=== PATIENT | male | born 1970 | race Caucasian/White ===

== ENCOUNTER 2016-11-29 11:13 | Emergency (ER) | payer SELFPAY ==
--- NOTE | 2016-11-29 20:56 | RAD ---
LUMBAR SPINE THREE VIEWS: Date: 11-29-16 FINDINGS: No fracture, dislocation, or disc space narrowing was seen. Some prominent osteophytes are seen ante riorly near the thoracolumbar junction and especially at the L3-4 level. The SI joints are symmetric al. IMPRESSION: Mild to moderate degenerative changes for age. No acute findings. POS: HOME
== END 2016-11-29 12:37 | disposition home or self-care (01) ==
LOC: BURERS 11:13
DX: M54.5 Low back pain (principal); M54.6 Pain in thoracic spine
CPT/HCPCS: 72100

== ENCOUNTER 2019-04-06 07:46 | Outpatient (CLI) | payer BC ==
[2019-04-06] MEDS ORDERED: Iopamidol 370 76% 100 ML VIAL ONE (10:26)
--- NOTE | 2019-04-07 07:35 | CT ---
CT abdomen and pelvis with IV and oral contrast HISTORY: Abdominal pain. FINDINGS: The lung bases are clear. There is a 0.2 cm calculus within a nondilated calyx at the infer ior pole left kidney. Solid organs are intact. Retroaortic left renal vein. Scattered diverticula arise from the colon without adjacent inflammation. Large amount of stool within the colon and rectum . Urinary bladder is unremarkable. Degenerative changes lumbar spine. IMPRESSION: Tiny nonobstructing left renal calculus. Diverticulosis. No evidence of diverticulitis. Constipation.
== END 2019-04-06 07:47 | disposition home or self-care (01) ==
LOC: BURCT 07:46
PROVIDERS: ATTEND Family Medicine
DX: R10.31 Right lower quadrant pain (principal); N20.0 Calculus of kidney; K57.30 Diverticulosis of large intestine without perforation or abscess without bleeding; K59.00 Constipation, unspecified
CPT/HCPCS: 74177; Q9967

== ENCOUNTER 2019-07-19 10:36 | Outpatient (CLI) | payer BC ==
--- NOTE | 2019-07-19 19:09 | RAD ---
CHEST TWO VIEWS: 07/19/19 The heart is normal in size. There is no lobar consolidation or effusion. At most, there may be some minor accentuation of the right basilar lung markings, but the finding is equivocal at best. IMPRESSION: No definite acute findings. Equivocal prominence of right basilar markings which could signify early infection or could not have significance whatsoever. Follow-up films suggested if symptoms change. POS: HOME
== END 2019-07-19 10:37 | disposition home or self-care (01) ==
LOC: BURRAD 10:36
PROVIDERS: ATTEND Physician Assistant
DX: R05 Cough (principal)
CPT/HCPCS: 71046

== ENCOUNTER 2024-03-13 03:41 | Emergency (ER) | payer OTHER | END 2024-03-13 04:24 | disposition home or self-care (01) | LOC: BURERS 03:41 | DX: S60.221A Contusion of right hand, initial encounter (principal); S60.512A Abrasion of left hand, initial encounter; V69.9XXA Occupant (driver) (passenger) of heavy transport vehicle injured in unspecified traffic accident, initial encounter; Y92.410 Unspecified street and highway as the place of occurrence of the external cause | CPT/HCPCS: 99283 ==